=== PATIENT | male | born 1950 | race Caucasian/White ===

== ENCOUNTER 2016-11-30 22:28 | Emergency (ER) | payer OTHER ==
--- NOTE | 2016-11-30 22:33 | EDM.PDOC ---
ED HPI GENERAL MEDICAL PROBLEM - General Stated Complaint: CHEST FEELS HEAVY Time Seen by Provider: 11/30/16 22:32 Source of Information: Reports: Patient, Family History Limitations: Reports: No Limitations - History of Present Illness INITIAL COMMENTS - FREE TEXT/NARRATIVE: spouse states Pt was c/o chest discomfort this am thought was pulled muscle, but not going away, comes-goes, tonight hurts more when lay flat. Pt states had chest heaviness earlier today that went away then left should started aching and worse tonight tried to lay down but pain got worse with SOB. Left Upper Chest Pain Score (Numeric/FACES): 4 - Related Data Allergies Allergy/AdvReac Type Severity Reaction Status Date / Time acetaminophen [From Percocet] Allergy Hives Verified 10/21/15 05:34 oxycodone HCl [From Percocet] Allergy Hives Verified 10/21/15 05:34 vancomycin Allergy Other Verified 10/21/15 05:34 Home Meds: Home Meds Carvedilol [Carvedilol] 12.5 mg PO ACBRK 06/11/14 [History] Losartan/Hydrochlorothiazide [Losartan-HCTZ 50-12.5 MG] 1 each PO DAILY [History] Tamsulosin HCl [Tamsulosin HCl] 0.4 mg PO ASDIRECTED 06/11/14 [History] Warfarin [Coumadin] 5 mg PO ASDIRECTED 06/11/14 [History] glipiZIDE [Glipizide Xl] 10 mg PO BID 06/11/14 [History] metFORMIN [Glucophage] 1,000 mg PO BIDMEALS 06/11/14 [History] Finasteride [Proscar] 5 mg PO DAILY 10/20/15 [History] Fluticasone Propionate [Flonase] 2 puff NASBOTH DAILY 10/20/15 [History] Gluc Fields/Chondro Fields A/Vit C/Mn [Glucosamine 1,500 Complex Cp] 1 tab PO BID [History] Ibuprofen 600 mg PO DAILY 10/20/15 [History] Vardenafil HCl [Levitra] 20 mg PO ASDIRECTED PRN 10/20/15 [History] Past Medical History HEENT History: Reports: Hard of Hearing, Impaired Vision Cardiovascular History: Reports: Afib, Angina, CAD, Hypertension, Other (See Below) Other Cardiovascular History: CHRONIC ANTICOAGULATION Respiratory History: Reports: Sleep Apnea Gastrointestinal History: Reports: Colon Polyp, Diverticulosis, Hemorrhoids Genitourinary History: Reports: BPH, Neurogenic Bladder, Urinary Incontinence, Other (See Below) Other Genitourinary History: GROSS HEMATURIA; ED Musculoskeletal History: Reports: Fracture, Other (See Below) Other Musculoskeletal History: SPRAIN ROTATOR CUFF-JOINT INJECTION; R ANKLE STRESS FRACTURE Endocrine/Metabolic History: Reports: Diabetes, Type II, Obesity/BMI 30+, Other (See Below) Other Endocrine/Metabolic History: AXILLARY LYMPHADENOPATHY; LYMPHEDEMA Immunologic History: Reports: None Oncologic (Cancer) History: Reports: None Dermatologic History: Reports: Cellulitis - Past Surgical History Cardiovascular Surgical History: Reports: Other (See Below) Endocrine Surgical History: Reports: Other (See Below) Social & Family History - Tobacco Use Smoking Status *Q: Never Smoker Second Hand Smoke Exposure: No - Recreational Drug Use Recreational Drug Use: No ED ROS GENERAL - Review of Systems Review Of Systems: ROS reveals no pertinent complaints other than HPI. ED EXAM, GENERAL - Physical Exam Exam: See Below Exam Limited By: No Limitations General Appearance: Alert, WD/WN, Mild Distress, Other (discomfort) Course - Vital Signs Last Recorded V/S: Last Vital Signs Temp 36.8 C 11/30/16 22:36 Pulse 106 H 11/30/16 22:36 Resp 12 11/30/16 22:36 BP 139/68 11/30/16 22:36 Pulse Ox 95 11/30/16 22:36 - Orders/Labs/Meds Orders: Active Orders 24 hr Category Date Time Status EKG 12 Lead [EKG Documentation Completion] [RC] STAT Care 11/30/16 22:31 Active Labs: Laboratory Tests 11/30/16 11/30/16 11/30/16 Range/Units 22:40 22:40 22:40 WBC 8.5 (5.0-10.0) 10^3/uL RBC 4.18 L (4.6-6.2) 10^6/uL Hgb 13.1 L (14.0-18.0) g/dL Hct 38.0 L (40.0-54.0) % MCV 90.9 (80-100) fL MCH 31.3 (27.0-34.0) pg MCHC 34.5 (33.0-35.0) g/dL Plt Count 166 (150-450) 10^3/uL Neut % (Auto) 72.8 (42.2-75.2) % Lymph % (Auto) 16.4 L (20.5-50.1) % [place] % (Auto) 9.0 H (2-8) % Eos % (Auto) 1.4 (1.0-3.0) % Baso % (Auto) 0.4 (0.0-1.0) % PT (9.0-12.0) SEC INR (0.9-1.2) D-Dimer, Quantitative < 100 (0-400) ng/mL Sodium 137 (135-145) mmol/L Potassium 4.2 (3.6-5.0) mmol/L Chloride 99 L (101-111) mmol/L Carbon Dioxide 27.0 (21.0-31.0) mmol/L Anion Gap 15.2 BUN 15 (7-18) mg/dL Creatinine 0.8 (0.6-1.3) mg/dL Est Cr Clr Drug Dosing 105.42 mL/min Estimated GFR (MDRD) > 60 BUN/Creatinine Ratio 18.75 Glucose 244 H (74-105) mg/dL Calcium 8.8 (8.4-10.2) mg/dl Total Bilirubin 1.0 (0.2-1.0) mg/dL AST 18 (10-42) IU/L ALT 20 (10-60) IU/L Alkaline Phosphatase 59 (42-121) IU/L Troponin I < 0.02 (0.00-0.02) ng/ml B-Natriuretic Peptide 82 (0-100) pg/ml Total Protein 6.8 (6.7-8.2) g/dl Albumin 4.0 (3.2-5.5) g/dl Globulin 2.8 Albumin/Globulin Ratio 1.43 06/16/17 Range/Units 22:40 WBC (5.0-10.0) 10^3/uL RBC (4.6-6.2) 10^6/uL Hgb (14.0-18.0) g/dL Hct (40.0-54.0) % MCV (80-100) fL MCH (27.0-34.0) pg MCHC (33.0-35.0) g/dL Plt Count (150-450) 10^3/uL Neut % (Auto) (42.2-75.2) % Lymph % (Auto) (20.5-50.1) % [place] % (Auto) (2-8) % Eos % (Auto) (1.0-3.0) % Baso % (Auto) (0.0-1.0) % PT 16.5 H (9.0-12.0) SEC INR 1.6 H (0.9-1.2) D-Dimer, Quantitative (0-400) ng/mL Sodium (135-145) mmol/L Potassium (3.6-5.0) mmol/L Chloride (101-111) mmol/L Carbon Dioxide (21.0-31.0) mmol/L Anion Gap BUN (7-18) mg/dL Creatinine (0.6-1.3) mg/dL Est Cr Clr Drug Dosing mL/min Estimated GFR (MDRD) BUN/Creatinine Ratio Glucose (74-105) mg/dL Calcium (8.4-10.2) mg/dl Total Bilirubin (0.2-1.0) mg/dL AST (10-42) IU/L ALT (10-60) IU/L Alkaline Phosphatase (42-121) IU/L Troponin I (0.00-0.02) ng/ml B-Natriuretic Peptide (0-100) pg/ml Total Protein (6.7-8.2) g/dl Albumin (3.2-5.5) g/dl Globulin Albumin/Globulin Ratio Meds: Medications Discontinued Medications Generic Name Dose Route Start Last Admin Trade Name Elkinq PRN Reason Stop Dose Admin Al Hydroxide/Mg Hydroxide 30 ml 11/30/16 22:34 11/30/16 22:49 Gi Cocktail PO 11/30/16 22:35 30 ml ONETIME ONE Administration Hydromorphone HCl 1 mg 11/30/16 23:23 11/30/16 23:34 Dilaudid IVPUSH 11/30/16 23:24 1 mg ONETIME ONE Administration Iopamidol 100 ml 11/30/16 23:25 11/30/16 23:33 Isovue-370 (76%) IVPUSH 11/30/16 23:26 100 ml ONETIME ONE Administration Morphine Sulfate 2 mg 11/30/16 22:38 11/30/16 22:50 Morphine IVPUSH 11/30/16 22:39 2 mg ONETIME ONE Administration Ondansetron HCl 4 mg 11/30/16 22:38 11/30/16 22:50 Zofran IV 11/30/16 22:39 4 mg ONETIME ONE Administration - Re-Assessments/Exams Free Text/Narrative Re-Assessment/Exam: 12/01/16 00:59 s/p IV Rx=better. negative results discussed with Pt & spouse Departure - Departure Time of Disposition: 00:59 Disposition: Home, Self-Care 01 Condition: Good Clinical Impression: Atypical chest pain, Esophagitis, Atrial arrhythmia, Anticoagulant therapy Instructions: Nonspecific Chest Pain, [id number] Forms: ED Department Discharge Additional Instructions: 1) rest and avoid lifting bending straining 2) try heat to sore area 3) see family doctor Saturday for MRI SCAN of left shoulder & cervical spine 4) return if there is any change or concern rx given; tramadol 50mg bid prn pain x 12 valium 5mg bid prn spasms x 12 - My Orders Last 24 Hours: My Active Orders 11/30/16 22:31 EKG 12 Lead [EKG Documentation Completion] [RC] STAT - Assessment/Plan Last 24 Hours: My Active Orders 11/30/16 22:31 EKG 12 Lead [EKG Documentation Completion] [RC] STAT
[2016-11-30] MEDS ORDERED: GI Cocktail Oral Solution 30 ML PO ONE (22:34)
[2016-11-30 22:37] VITALS: BP 139/68
[2016-11-30] MEDS ORDERED: Morphine 2 MG/ML Syringe IVPUSH ONE (22:38)
[2016-11-30] MEDS ORDERED: Ondansetron 4 MG/2 ML SDV IV ONE (22:38)
[2016-11-30 23:07] LABS: CHLORIDE,CL 99 mmol/L (101-111); SODIUM,NA 137 mmol/L (135-145)
[2016-11-30] MEDS ORDERED: HYDROmorphone 1 MG/ML Syringe IVPUSH ONE (23:23)
[2016-11-30] MEDS ORDERED: Iopamidol 755 Mg/ML 100 ML Bottle IVPUSH ONE (23:25)
[2016-12-01] MEDS ORDERED: traMADol 50 MG Tab ONE (00:59)
[2016-12-01] MEDS ORDERED: Diazepam 5 MG Tab PO ONE (01:00)
[2016-12-01] MEDS ORDERED: Diazepam 5 MG Tab ONE (01:00)
[2016-12-01] MEDS ORDERED: traMADol 50 MG Tab PO ONE (01:00)
--- NOTE | 2016-12-21 12:45 | EKG ---
11/30/2016 - CYNDY GRANT - A 12-lead EKG shows atrial fibrillation with heart rate of 99. No significant ST elevation or ST depression noted on this 12-lead EKG. [facility] /[id number]
== END 2016-12-01 01:05 | disposition home or self-care (01) ==
LOC: DL.ED 22:28
DX: R07.89 Other chest pain (principal); K20.9 Esophagitis, unspecified; I48.91 Unspecified atrial fibrillation; I25.10 Atherosclerotic heart disease of native coronary artery without angina pectoris; I10 Essential (primary) hypertension; E11.9 Type 2 diabetes mellitus without complications; E66.9 Obesity, unspecified; Z79.01 Long term (current) use of anticoagulants; Z88.1 Allergy status to other antibiotic agents; Z79.899 Other long term (current) drug therapy; Z88.6 Allergy status to analgesic agent
CPT/HCPCS: 36415; 71010; 71260; 80053; 83880; 84484; 85025; 85379; 85610; 93005; 96374; 96375; 99285; A9270; J1170; J2270; J2405; Q9967

== ENCOUNTER 2017-01-15 05:51 | Day surgery (SDC) | payer OTHER ==
[2017-01-15] MEDS ORDERED: Midazolam 1 MG/ML 2 ML SDV ONE (06:12)
[2017-01-15] MEDS ORDERED: fentaNYL 100 MCG/2 ML SDV ONE (06:12)
[2017-01-15] MEDS ORDERED: Sodium Chloride 0.9% 10 ML Syringe FLUSH PRN (07:18)
[2017-01-15] MEDS ORDERED: fentaNYL 100 MCG/2 ML SDV IV ONE ×3 (07:20→16:47)
[2017-01-15] MEDS ORDERED: Midazolam 1 MG/ML 2 ML SDV IV ONE ×3 (07:22→16:47)
[2017-01-15] MEDS ORDERED: Dextrose 5%-0.45% NaCl 1,000 ML IV SCH (07:30)
--- NOTE | 2017-01-15 08:41 | OR ---
DATE: 01/15/2017 PROCEDURES: Esophagogastroduodenoscopy, NBI, and multiple pinch biopsies. INSTRUMENT USED: GIF-H180 Olympus video panendoscope. PREMEDICATIONS: No oral topical anesthesia used. Fentanyl 100 mcg intravenous, Versed 2 mg intravenous. Nasal O2 cannula. The procedure was done under pulse oximetry, BP recording, and air sampling and monitoring. INDICATION: The patient with unexplained chest pain and intermittent high dysphagia, not responsive to medical measures. Esophagogastroduodenoscopy is performed for detection of any active erosive lesions, Lott esophagus and/or malignancy also under consideration, H. pylori status to be determined, esophageal dilatations if indicated, endoscopic hemostasis therapy if needed. DESCRIPTION OF PROCEDURE: The scope was passed with ease. Adequate visualization of the esophagus was made from proximal to distal areas. No upper esophageal lesions identified. No distal esophageal stricture. No uphill or downhill esophageal varices. No Debby-Richards tear. No evidence of erosive esophagitis by Harlan criteria. No esophageal polyp or tumor mass identified. Proximally encroaching, pink columnar epithelium was noted at around 35 cm distal to the oral verge, NBI views were obtained, 4-quadrant biopsies were obtained and sent for any evidence of intestinal metaplasia. No esophageal polyp or tumor mass identified. No proximal gastric varices noted. Gastric fundus examination by retroflexion showed no polypoid lesions. No gastric ulcer, malignant mass, or vascular ectasia identified. Duodenal bulb showed no ulcer. Visualized second part of the duodenum was unremarkable. Multiple pinch biopsies were taken from the gastric antrum and proximal body and sent for PyloriTek test for H. pylori and histopathology. No bleeding was noted from any of the visualized areas at the completion of examination. Photographs were taken of the duodenal bulb, gastric antrum, fundus, and distal esophagus. IMPRESSION: Columnar-lined distal esophagus. The patient tolerated the procedure well. [facility] /[id number]
[2017-01-15 09:21] VITALS: BP 139/80
== END 2017-01-15 09:30 | disposition home or self-care (01) ==
LOC: DL.ENDO 05:51
PROVIDERS: ATTEND Internal Medicine Gastroenterology
DX: K22.70 Barrett's esophagus without dysplasia (principal); E66.01 Morbid (severe) obesity due to excess calories; I10 Essential (primary) hypertension; E11.9 Type 2 diabetes mellitus without complications; K21.9 Gastro-esophageal reflux disease without esophagitis; Z88.1 Allergy status to other antibiotic agents; Z88.8 Allergy status to other drugs, medicaments and biological substances
CPT/HCPCS: 43239; 87077; J2250; J7042; J3010

== ENCOUNTER 2019-09-02 11:17 | Emergency (ER) | payer OTHER ==
--- NOTE | 2019-09-02 11:35 | EDM.PDOC ---
ED HPI GENERAL MEDICAL PROBLEM - General Chief Complaint: Trauma Stated Complaint: UNKNOWN Time Seen by Provider: 09/02/19 11:17 Source of Information: Reports: Patient History Limitations: Reports: No Limitations - History of Present Illness INITIAL COMMENTS - FREE TEXT/NARRATIVE: ED ambulatory, reports slipped on ice and fell hit head on concrete. Admits loss of consciousness. Able to get up drive self home then brought by family. Notes neck pain and skin pain in neck sandy in front. No weakness. Chronic shoulder discomfort. "just not feeling right". On coumadin for A fib last check approximately 3 months ago. C collar placed on arrival. - Related Data Allergies Allergy/AdvReac Type Severity Reaction Status Date / Time acetaminophen [From Percocet] Allergy Hives Verified 09/02/19 11:26 oxycodone HCl [From Percocet] Allergy Hives Verified 09/02/19 11:26 vancomycin Allergy Other Verified 09/02/19 11:26 Home Meds: Home Meds Losartan/Hydrochlorothiazide [Losartan-HCTZ 50-12.5 MG] 1 each PO DAILY [History] Tamsulosin HCl 0.4 mg PO BID 06/11/14 [History] Warfarin [Coumadin] 5 mg PO ASDIRECTED 06/11/14 [History] carvediloL [Carvedilol] 12.5 mg PO ACBRK 06/11/14 [History] metFORMIN [Glucophage] 1,000 mg PO BIDMEALS 06/11/14 [History] Finasteride [Proscar] 5 mg PO DAILY 10/20/15 [History] Fluticasone Propionate [Flonase] 2 puff NASBOTH DAILY 10/20/15 [History] Gluc Fields/Chondro Fields A/Vit C/Mn [Glucosamine 1,500 Complex Cp] 1 tab PO BID [History] Vardenafil HCl [Levitra] 20 mg PO DAILY PRN 10/20/15 [History] Glucosamine [Glucosamine Sulfate] 500 mg PO DAILY 03/30/18 [History] Past Medical History HEENT History: Reports: Hard of Hearing, Impaired Vision Cardiovascular History: Reports: Afib, Angina, CAD, Hypertension, Other (See Below) Other Cardiovascular History: CHRONIC ANTICOAGULATION Respiratory History: Reports: Sleep Apnea Other Respiratory History: Has c-pap Gastrointestinal History: Reports: Colon Polyp, Diverticulosis, Hemorrhoids Genitourinary History: Reports: BPH, Neurogenic Bladder, Urinary Incontinence, Other (See Below) Other Genitourinary History: GROSS HEMATURIA; ED Musculoskeletal History: Reports: Fracture, Other (See Below) Other Musculoskeletal History: SPRAIN ROTATOR CUFF-JOINT INJECTION; R ANKLE STRESS FRACTURE Endocrine/Metabolic History: Reports: Diabetes, Type II, Obesity/BMI 30+, Other (See Below) Other Endocrine/Metabolic History: AXILLARY LYMPHADENOPATHY; LYMPHEDEMA Immunologic History: Reports: None Oncologic (Cancer) History: Reports: None Dermatologic History: Reports: Cellulitis - Infectious Disease History Infectious Disease History: Reports: Chicken Pox, Measles, Mumps Other Infectious Disease History: [place]. - Past Surgical History Cardiovascular Surgical History: Reports: Other (See Below) Other Cardiovascular Surgeries/Procedures: CARDIAC CATH GI Surgical History: Reports: Colonoscopy, Polypectomy Endocrine Surgical History: Reports: Other (See Below) Other Endocrine Surgeries/Procedures: DISSECTION OF AXILLARY DISSECTION WITH REMOVAL OF DEEP LEVEL I & II LYMPH NODES Social & Family History - Family History Family Medical History: Noncontributory - Caffeine Use Caffeine Use: Reports: Coffee, Soda Other Caffeine Use: 1/2 TO 3/4 cup of coffee in the am. Drinks one pop a week Review of Systems - Review of Systems Review Of Systems: Comprehensive ROS is negative, except as noted in HPI. ED EXAM, GENERAL - Physical Exam Exam: See Below Exam Limited By: No Limitations General Appearance: Alert, No Apparent Distress, Obese Eye Exam: Bilateral Eye: EOMI, PERRL Ears: Normal External Exam, Normal Canal, Hearing Loss, Other (bilateral hearing aides) Nose: Normal Inspection Throat/Mouth: Normal Inspection Head: Normocephalic, Other (scalp tender occipital) Neck: Full Range of Motion, Other (c/o pain, lateral and para spinal c collar placed on arrivalj ) Respiratory/Chest: No Respiratory Distress, Lungs Clear, Normal Breath Sounds Cardiovascular: Normal Peripheral Pulses, Irregularly Irregular GI/Abdominal: Normal Bowel Sounds, Soft, Non-Tender Back Exam: Full Range of Motion, Paraspinal Tenderness (upper across shoulder blades) Extremities: Normal Inspection, Normal Range of Motion Neurological: Alert, Oriented, Normal Cognition, Other (GSC 15) Psychiatric: Normal Affect, Normal Mood Skin Exam: Warm, Dry, Intact, Normal Color, No Rash. No: Ecchymosis, Erythema, Wound/Incision Course - Orders/Labs/Meds Orders: Active Orders 24 hr Category Date Time Status Abdomen w Cont [CT] Urgent Exams 09/02/19 12:14 Taken Labs: Laboratory Tests 09/02/19 09/02/19 09/02/19 Range/Units 11:37 11:37 11:37 WBC 5.9 (5.0-10.0) 10^3/uL RBC 4.71 (4.6-6.2) 10^6/uL Hgb 14.8 D (14.0-18.0) g/dL Hct 43.1 (40.0-54.0) % MCV 91.5 (80-100) fL MCH 31.4 (27.0-34.0) pg MCHC 34.3 (33.0-35.0) g/dL Plt Count 157 (150-450) 10^3/uL Neut % (Auto) 72.1 (42.2-75.2) % Lymph % (Auto) 17.8 L (20.5-50.1) % [place] % (Auto) 8.6 H (2-8) % Eos % (Auto) 1.0 (1.0-3.0) % Baso % (Auto) 0.5 (0.0-1.0) % PT 37.0 H D (9.0-12.0) SEC INR 3.9 H (0.9-1.2) Sodium 138 (136-145) mmol/L Potassium 4.4 (3.5-5.1) mmol/L Chloride 101 (98-107) mmol/L Carbon Dioxide 33 H (21-32) mmol/L Anion Gap 8.4 (7-13) mEq/L BUN 26 H (7-18) mg/dL Creatinine 0.95 (0.70-1.30) mg/dL Est Cr Clr Drug Dosing TNP Estimated GFR (MDRD) > 60 BUN/Creatinine Ratio 27.4 (No establ ref range) Glucose 156 H (74-99) mg/dL Calcium 8.3 L (8.5-10.1) mg/dL Total Bilirubin 1.1 H (0.2-1.0) mg/dL AST 11 L (15-37) U/L ALT 23 (16-63) U/L Alkaline Phosphatase 67 (46-116) U/L Total Protein 7.3 (6.4-8.2) g/dL Albumin 3.9 (3.4-5.0) g/dL Globulin 3.4 Albumin/Globulin Ratio 1.1 Meds: Medications Discontinued Medications Generic Name Dose Route Start Last Admin Trade Name Adan PRN Reason Stop Dose Admin Iopamidol 100 ml 09/02/19 12:09 Isovue-300 (61%) IVPUSH 09/02/19 12:10 ONETIME ONE Iopamidol 100 ml 09/02/19 12:15 09/02/19 12:52 Isovue-370 (76%) IVPUSH 09/02/19 12:16 100 ml ONETIME ONE Administration - Re-Assessments/Exams Free Text/Narrative Re-Assessment/Exam: 1220 C-spine resulted continued pain around collar. Further testing thoracic with contrast. 09/02/19 13:36 Alert, primary c/o pain to base of neck feels like on fire. No weakness or tingling. c/o pain now across shoulder blades, denies hitting head , at least doesn't' think so. Now reporting hitting between shoulder blades on curb. Some repetitive questions, Moving extremities. Scans with no acute findings. primary c/o burning at collar. moving all extremities. Mentation clearing. GSC 15. RN, results reviewed. Home will continue to monitor and follow up if any change. Departure - Departure Time of Disposition: 13:46 Disposition: Home, Self-Care 01 Condition: Good Clinical Impression: Concussion with brief (less than one hour) loss of consciousness, Muscle strain of anterior chest wall, Chronic anticoagulation Strain of neck muscle Qualifiers: Encounter type: initial encounter Qualified Code(s): S16.1XXA - Strain of muscle, fascia and tendon at neck level, initial encounter Fall Qualifiers: Encounter type: initial encounter Qualified Code(s): W19.XXXA - Unspecified fall, initial encounter Afib Qualifiers: Atrial fibrillation type: unspecified Qualified Code(s): I48.91 - Unspecified atrial fibrillation - Discharge Information *PRESCRIPTION DRUG MONITORING PROGRAM REVIEWED*: No *COPY OF PRESCRIPTION DRUG MONITORING REPORT IN PATIENT SADE: No Instructions: Head Injury, Adult, Muscle Strain, [id number], Post-Concussion Syndrome Referrals: Trish Mayberry NP [Primary Care Provider] - Forms: ED Department Discharge Additional Instructions: flexeril 10mg one ever 8 hours as needed for severe spasm hydrocodone 10/325 one every 6 hours as needed for severe pain tylenol 650mg every 4 hours as needed for discomfort hold coumadin tonight then 1/2 dose , recheck INR Saturday Discuss Coumadin dosing with primary care ice to upper chest Urgent follow up dizziness, severe headache, change in mental state, confusion, or difficulty breathing Sepsis Event Note - Focused Exam Date Exam was Performed: 09/02/19 Time Exam was Performed: 15:46 - My Orders Last 24 Hours: My Active Orders 09/02/19 12:14 Abdomen w Cont [CT] Urgent - Assessment/Plan Last 24 Hours: My Active Orders 09/02/19 12:14 Abdomen w Cont [CT] Urgent
[2019-09-02 12:00] LABS: ANION GAP 8.4 mEq/L (7-13); CHLORIDE,CL 101 mmol/L (98-107); SODIUM,NA 138 mmol/L (136-145)
[2019-09-02] MEDS ORDERED: Iopamidol 612 MG/ML 100 ML Bottle IVPUSH ONE (12:09)
[2019-09-02] MEDS ORDERED: Iopamidol 755 Mg/ML 100 ML Bottle IVPUSH ONE (12:15)
--- NOTE | 2019-09-02 12:25 | CT ---
EXAMINATION: Cervical Spine wo Cont SEX: Male AGE: 69 years CLINICAL HISTORY: Clinical history: 69-year-old male injured in fall (on coumadin) Scan technique: Volume acquisition of data emergency unenhanced CT scan of the cervical spine obtained with patient lying supine on the Siemens multislice scanner [place], [place]. All data archived in the PACS system for storage, reformatting axial/sagittal/coronal planes and study. INTERPRETATION: 1. Chronic dense reactive sclerosis atlantoaxial joint. 2. Signs of multilevel mid and lower cervical disc disease i.e. interspace narrowing, endplate sclerosis and hypertrophic marginal spondylosis bridging C4-5 C5-6 and C6-7 levels. Note: Large uncinate spurs posteriorly lower cervical spine exam to exclude the possibility of cervical cord contusion. Clinical? 3. Calcification of the ligamentum flavum posteriorly at cervical spine. 4. No sign of prevertebral soft tissue swelling, acute cervical fracture, spondylolisthesis or jumped locked facet. 5. No cervical rib anomalies or first rib fractures. Lung apices clear. 6. No basal skull fracture (symmetric clear pneumatization of the mastoid sinuses) CONCLUSION: Chronic severe multilevel disc disease (see above). No acute cervical fracture or dislocation.
--- NOTE | 2019-09-02 12:29 | CT ---
EXAMINATION: Head wo Cont SEX: Male AGE: 69 years CLINICAL HISTORY: 69-year-old male injured today in a fall (high risk patient i.e. on Coumadin). Scan technique: Volume acquisition of data emergency unenhanced CT scan of the head and brain obtained with patient lying supine on the Siemens multislice scanner [place], [place]. All data archived in the PACS system for storage, reformatting axial/sagittal/coronal planes and study (bone/brain windows). Interpretation: 1. Uniformly thick bony calvarium without sign of skull fracture, underlying/contrecoup brain contusion, or abnormal extracerebral/intracranial epidural or subdural hematoma. 2. Symmetric clear pneumatization of the paranasal and mastoid sinuses. Nasal septum is straight midline. Normal TMJs. 3. Symmetric mendiola-white matter pattern consistent with age and underlying mirror-image normal ventricular system. 4. Midline pineal and symmetric choroid plexus calcifications. Coronary artery calcifications skull base. 5. No supratentorial or posterior fossa mass lesion. Cerebellum and brainstem unremarkable. 6. Subtle microvascular ischemic change but no sign of acute intracerebral/intraventricular/subarachnoid bleed. CONCLUSION: Microvascular ischemic changes. No sign of skull fracture or closed head injury. Specifically, no current evidence of acute intracranial bleed.
--- NOTE | 2019-09-02 12:56 | CR ---
EXAMINATION: Shoulder 1V Lt SEX: Male AGE: 69 years CLINICAL HISTORY: 69-year-old male recently injured (fall on back) and now LEFT SHOULDER PAIN. INTERPRETATION: Abnormal. 1. *Elevation of the humeral head relative to the glenoid of the scapula suggesting rotator cuff impingement or tear. 2. No sign of juxta-articular rotator cuff tendon calcifications. 3. Homogeneous normal bone density. No pathologic skeletal lesion. 4. No sign of acute left shoulder fracture, acromioclavicular separation or glenohumeral dislocation. 5. Underlying ribs upper left hemithorax unremarkable. Left lung apex clear.
--- NOTE | 2019-09-02 13:34 | CT ---
EXAMINATION: Chest w Cont SEX: Male AGE: 69 years CLINICAL HISTORY: 69-year-old 327 pound diabetic male injured in FALL ("tingling" between the shoulder blades"). Rule out aortic dissection (Coumadin anticoagulation) or spinal abnormality. Scan technique: Volume acquisition of data from the chest and abdomen obtained during the intravenous administration 100 cc nonionic Isovue 370 contrast at 4 cc/s via injector while patient was lying supine on the Siemens multislice scanner [place], [place]. All data archived in the PACS system for storage, reformatting axial/sagittal/coronal planes and study. INTERPRETATION: 1. Normal caliber mildly ectatic thoracic and abdominal aorta. No sign of dissection or aneurysmal dilatation. 2. Kyphosis, multilevel disc disease and hypertrophic spondylosis all levels lower cervical, entire thoracic and lumbar spine. No pathologic skeletal lesion, acute fracture or spondylolisthesis. No rib fractures. Sternum and scapulae unremarkable. 3. Borderline cardiomegaly. No pulmonary vascular congestion, alveolar edema or dependent pleural effusion. 4. Bibasilar atelectasis. No lung mass, hilar/mediastinal lymphadenopathy, or focal lobar pneumonia. No pneumothorax. 5. Gallbladder, liver, stomach, spleen, pancreas and adrenal glands unremarkable. 6. Isolated small 2.5 cm diameter fatty mass lesion (probable angiomyolipoma) upper pole right kidney. Isolated 15 mm exophytic cyst posterior lateral cortex lower midpole right kidney. No other solid or cystic renal lesion. No nephrolithiasis. 7. No sign of mechanical bowel obstruction, free intraperitoneal fluid or air. CONCLUSION: No abnormal sequelae of trauma. Usual signs of senescent including multilevel disc disease and arthritis. 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
--- NOTE | 2019-09-02 13:40 | CT ---
EXAMINATION: Thoracic Spine wo Cont SEX: Male AGE: 69 years CLINICAL HISTORY: 69-year-old obese male acutely injured in a fall (upper mid back pain). Scan technique: Volume acquisition of data emergency unenhanced CT scan of the thoracic spine obtained with patient lying supine on the Siemens multislice scanner [place], [place]. All data archived in the PACS system for storage, reformatting axial/sagittal/coronal planes and study. Interpretation: Generalized mild osteopenia consistent with age and gender. Kyphosis upper dorsal spine but no sign of paraspinal soft tissue mass/hematoma, acute thoracic fracture or spondylolisthesis. Chronic multilevel disc disease noted at all levels of the thoracic spine with associated hypertrophic marginal spondylosis thoracic and upper lumbar spine. Left normal caliber underlying unenhanced thoracic aorta. No effusions. No posterior rib fractures. No upper lobe contusion (patchy atelectasis or contusion LLL) or pneumothorax. Arthritic changes but normal sternoclavicular joint articulation. CONCLUSION: Chronic multilevel disc disease and hypertrophic arthritic changes of the entire spine. No acute fracture.
== END 2019-09-02 14:05 | disposition home or self-care (01) ==
LOC: DL.ED 11:17
DX: S06.0X9A Concussion with loss of consciousness of unspecified duration, initial encounter (principal); S16.1XXA Strain of muscle, fascia and tendon at neck level, initial encounter; S29.011A Strain of muscle and tendon of front wall of thorax, initial encounter; I48.91 Unspecified atrial fibrillation; I10 Essential (primary) hypertension; I25.10 Atherosclerotic heart disease of native coronary artery without angina pectoris; E11.9 Type 2 diabetes mellitus without complications; E66.9 Obesity, unspecified; Z88.8 Allergy status to other drugs, medicaments and biological substances; Z88.5 Allergy status to narcotic agent; Z88.1 Allergy status to other antibiotic agents; Z79.899 Other long term (current) drug therapy; Z79.01 Long term (current) use of anticoagulants; Z79.84 Long term (current) use of oral hypoglycemic drugs; W00.0XXA Fall on same level due to ice and snow, initial encounter
CPT/HCPCS: 36415; 70450; 71260; 72125; 72128; 73020-LT; 74160; 80053; 85025; 85610; 99284-25; Q9967

== ENCOUNTER 2020-05-02 14:28 | Emergency (ER) | payer OTHER ==
[2020-05-02 14:41] VITALS: BP 118/85; PULSE 84
--- NOTE | 2020-05-02 15:02 | CR ---
EXAMINATION: Chest 1V Frontal SEX: Male AGE: 69 years CLINICAL HISTORY: 69-year-old male complaining of chest pain. INTERPRETATION: *No acute new cardiopulmonary abnormality identified since comparison exam 30 March 2018. Chronic mild cardiomegaly but no new pulmonary vascular congestion, cephalization of flow, alveolar edema or dependent pleural fluid accumulation. No new lung mass or hilar lymphadenopathy. No focal lobar infiltrate/atelectasis or peripheral "groundglass" densities. No pneumothorax or pneumomediastinum (external cardiac catheterization technician leads). 1. CONCLUSION:
[2020-05-02 15:14] LABS: ANION GAP 12.9 mEq/L (7-13); CHLORIDE,CL 99 mmol/L (98-107); SODIUM,NA 137 mmol/L (136-145)
[2020-05-02] MEDS ORDERED: GI Cocktail Oral Solution 30 ML PO ONE (15:31)
--- NOTE | 2020-05-02 15:37 | EDM.PDOC ---
ED HPI GENERAL MEDICAL PROBLEM - General Chief Complaint: Chest Pain Stated Complaint: UNKNOWN Time Seen by Provider: 05/02/20 14:45 Source of Information: Reports: Patient History Limitations: Reports: No Limitations - History of Present Illness INITIAL COMMENTS - FREE TEXT/NARRATIVE: This 69 yo male patient reports to the ED with left arm pain. The patient reports his symptoms started last evening and have continued throughout the day. The patient reports his pain is in his entire left arm from his shoulder to his hand. The patient has not been able to do anything to make the pain better or worse. The patient reports he had excessive gas last night as well. The patient reports he had a MRI of his neck last week due to right sided aching. The MRI results demonstrated nerve impingement at C-4 as well as foramen narrowing throughout the c-spine. Onset Date: 05/01/20 Duration: Constant Location: Reports: Upper Extremity, Left Quality: Reports: Ache Severity: Moderate Improves with: Reports: None Worsens with: Reports: None Context: Reports: Other Associated Symptoms: Reports: No Other Symptoms Left Arm Pain Score (Numeric/FACES): 2 - Related Data Allergies Allergy/AdvReac Type Severity Reaction Status Date / Time acetaminophen [From Percocet] Allergy Hives Verified 05/02/20 14:41 oxycodone HCl [From Percocet] Allergy Hives Verified 05/02/20 14:41 vancomycin Allergy Other Verified 05/02/20 14:41 Home Meds: Home Meds Losartan/Hydrochlorothiazide [Losartan-HCTZ 50-12.5 MG] 1 each PO DAILY 06/11/14 [History] Tamsulosin HCl 0.4 mg PO BID 06/11/14 [History] Warfarin [Coumadin] 5 mg PO ASDIRECTED 06/11/14 [History] carvediloL [Carvedilol] 12.5 mg PO ACBRK 06/11/14 [History] metFORMIN [Glucophage] 1,000 mg PO BIDMEALS 06/11/14 [History] Finasteride [Proscar] 5 mg PO DAILY 10/20/15 [History] Fluticasone Propionate [Flonase] 2 puff NASBOTH DAILY 10/20/15 [History] Gluc Fields/Chondro Fields A/Vit C/Mn [Glucosamine 1,500 Complex Cp] 1 tab PO BID 10/20/15 [History] Vardenafil HCl [Levitra] 20 mg PO DAILY PRN 10/20/15 [History] Glucosamine [Glucosamine Sulfate] 500 mg PO DAILY 03/30/18 [History] Past Medical History HEENT History: Reports: Hard of Hearing, Impaired Vision Cardiovascular History: Reports: Afib, Angina, CAD, Hypertension, Other (See Below) Other Cardiovascular History: CHRONIC ANTICOAGULATION Respiratory History: Reports: Sleep Apnea Other Respiratory History: Has c-pap Gastrointestinal History: Reports: Colon Polyp, Diverticulosis, Hemorrhoids Genitourinary History: Reports: BPH, Neurogenic Bladder, Urinary Incontinence, Other (See Below) Other Genitourinary History: GROSS HEMATURIA; ED Musculoskeletal History: Reports: Fracture, Other (See Below) Other Musculoskeletal History: SPRAIN ROTATOR CUFF-JOINT INJECTION; R ANKLE STRESS FRACTURE Endocrine/Metabolic History: Reports: Diabetes, Type II, Obesity/BMI 30+, Other (See Below) Other Endocrine/Metabolic History: AXILLARY LYMPHADENOPATHY; LYMPHEDEMA Immunologic History: Reports: None Oncologic (Cancer) History: Reports: None Dermatologic History: Reports: Cellulitis - Infectious Disease History Infectious Disease History: Reports: Chicken Pox, Measles, Mumps Other Infectious Disease History: [place]. - Past Surgical History HEENT Surgical History: Reports: None Cardiovascular Surgical History: Reports: Other (See Below) Other Cardiovascular Surgeries/Procedures: CARDIAC CATH GI Surgical History: Reports: Colonoscopy, Polypectomy Endocrine Surgical History: Reports: Other (See Below) Other Endocrine Surgeries/Procedures: DISSECTION OF AXILLARY DISSECTION WITH REMOVAL OF DEEP LEVEL I & II LYMPH NODES Social & Family History - Family History Family Medical History: No Pertinent Family History - Tobacco Use Tobacco Use Status *Q: Never Tobacco User - Caffeine Use Caffeine Use: Reports: Coffee Other Caffeine Use: 1/2 TO 3/4 cup of coffee in the am. Drinks one pop a week - Recreational Drug Use Recreational Drug Use: No ED ROS GENERAL - Review of Systems Review Of Systems: Comprehensive ROS is negative, except as noted in HPI. ED EXAM, GENERAL - Physical Exam Exam: See Below Exam Limited By: No Limitations General Appearance: Alert, WD/WN, Mild Distress Eye Exam: Bilateral Eye: EOMI, Normal Inspection, PERRL Ears: Normal External Exam, Normal Canal, Hearing Grossly Normal, Normal TMs Nose: Normal Inspection, Normal Mucosa, No Blood Throat/Mouth: Normal Inspection, Normal Lips, Normal Teeth, Normal Gums, Normal Oropharynx, Normal Voice, No Airway Compromise Head: Atraumatic, Normocephalic Neck: Normal Inspection, Supple, Non-Tender, Full Range of Motion Respiratory/Chest: No Respiratory Distress, Lungs Clear, Normal Breath Sounds, No Accessory Muscle Use, Chest Non-Tender Cardiovascular: Normal Peripheral Pulses, Regular Rate, Rhythm, No Edema, No Gallop, No JVD, No Murmur, No Rub GI/Abdominal: Normal Bowel Sounds, Soft, Non-Tender, No Organomegaly, No Distention, No Abnormal Bruit, No Mass (Male) Exam: Deferred Rectal (Males) Exam: Deferred Back Exam: Normal Inspection Extremities: Normal Range of Motion, No Pedal Edema, Normal Capillary Refill, Arm Pain (left upper extremity aching) Neurological: Alert, Oriented, CN II-XII Intact, Normal Cognition, Normal Gait, Normal Reflexes, No Motor/Sensory Deficits Psychiatric: Normal Affect, Normal Mood Skin Exam: Warm, Dry, Intact, Normal Color, No Rash Lymphatic: No Adenopathy Course - Vital Signs Last Recorded V/S: Last Vital Signs Temp 36.1 C 05/02/20 14:39 Pulse 84 05/02/20 14:39 Resp 20 05/02/20 14:39 BP 118/85 05/02/20 14:39 Pulse Ox 97 05/02/20 14:39 - Orders/Labs/Meds Orders: Active Orders 24 hr Category Date Time Status EKG Documentation Completion [RC] STAT Care 05/02/20 14:27 Ordered CULTURE BLOOD [BC] Stat Lab 05/02/20 14:27 Ordered Labs: Laboratory Tests 05/02/20 05/02/20 05/02/20 Range/Units 14:38 14:38 14:38 WBC 5.8 (5.0-10.0) 10^3/uL RBC 4.51 L (4.6-6.2) 10^6/uL Hgb 14.3 (14.0-18.0) g/dL Hct 41.9 (40.0-54.0) % MCV 92.9 (80-100) fL MCH 31.7 (27.0-34.0) pg MCHC 34.1 (33.0-35.0) g/dL Plt Count 166 (150-450) 10^3/uL Neut % (Auto) 71.0 (42.2-75.2) % Lymph % (Auto) 18.4 L (20.5-50.1) % Rush % (Auto) 8.6 H (2-8) % Eos % (Auto) 1.5 (1.0-3.0) % Baso % (Auto) 0.5 (0.0-1.0) % D-Dimer, Quantitative < 100 (0-400) ng/mL Sodium 137 (136-145) mmol/L Potassium 3.9 (3.5-5.1) mmol/L Chloride 99 (98-107) mmol/L Carbon Dioxide 29 (21-32) mmol/L Anion Gap 12.9 (7-13) mEq/L BUN 23 H (7-18) mg/dL Creatinine 0.93 (0.70-1.30) mg/dL Est Cr Clr Drug Dosing 89.61 mL/min Estimated GFR (MDRD) > 60 BUN/Creatinine Ratio 24.7 (No establ ref range) Glucose 193 H (74-99) mg/dL Lactic Acid (0.4-2.0) mmol/L Calcium 8.8 (8.5-10.1) mg/dL Total Bilirubin 1.3 H (0.2-1.0) mg/dL AST 12 L (15-37) U/L ALT 20 (16-63) U/L Alkaline Phosphatase 73 (46-116) U/L Troponin I < 0.017 (0.000-0.056) ng/mL Total Protein 7.3 (6.4-8.2) g/dL Albumin 3.7 (3.4-5.0) g/dL Globulin 3.6 Albumin/Globulin Ratio 1.0 11/16/20 Range/Units 14:38 WBC (5.0-10.0) 10^3/uL RBC (4.6-6.2) 10^6/uL Hgb (14.0-18.0) g/dL Hct (40.0-54.0) % MCV (80-100) fL MCH (27.0-34.0) pg MCHC (33.0-35.0) g/dL Plt Count (150-450) 10^3/uL Neut % (Auto) (42.2-75.2) % Lymph % (Auto) (20.5-50.1) % Rush % (Auto) (2-8) % Eos % (Auto) (1.0-3.0) % Baso % (Auto) (0.0-1.0) % D-Dimer, Quantitative (0-400) ng/mL Sodium (136-145) mmol/L Potassium (3.5-5.1) mmol/L Chloride (98-107) mmol/L Carbon Dioxide (21-32) mmol/L Anion Gap (7-13) mEq/L BUN (7-18) mg/dL Creatinine (0.70-1.30) mg/dL Est Cr Clr Drug Dosing mL/min Estimated GFR (MDRD) BUN/Creatinine Ratio (No establ ref range) Glucose (74-99) mg/dL Lactic Acid 1.2 (0.4-2.0) mmol/L Calcium (8.5-10.1) mg/dL Total Bilirubin (0.2-1.0) mg/dL AST (15-37) U/L ALT (16-63) U/L Alkaline Phosphatase (46-116) U/L Troponin I (0.000-0.056) ng/mL Total Protein (6.4-8.2) g/dL Albumin (3.4-5.0) g/dL Globulin Albumin/Globulin Ratio Meds: Medications Discontinued Medications Generic Name Dose Route Start Last Admin Trade Name Freq PRN Reason Stop Dose Admin Al Hydroxide/Mg Hydroxide 30 ml 05/02/20 15:31 05/02/20 15:35 Gi Cocktail PO 05/02/20 15:32 30 ml ONETIME ONE Administration Departure - Departure Time of Disposition: 15:47 Disposition: Home, Self-Care 01 Condition: Fair Clinical Impression: Radicular pain in left arm Instructions: Neuropathic Pain Forms: ED Department Discharge Care Plan Goals: The patient was advised of the examination, lab, EKG and x-ray results during the visit. The patient was given a GI Cocktail while in the ED. The patient was discharged with a script for Prednisone (20 mg) #10 to take 2 by mouth daily for 5 days. The patient was encouraged to continue to monitor for any additional symptoms. If the patient has any additional symptoms or concerns, the patient should either return to the emergency department or visit his primary care facility. Sepsis Event Note (ED) - Evaluation Sepsis Screening Result: No Definite Risk - Focused Exam Vital Signs: Vital Signs Temp Pulse Resp BP Pulse Ox 05/02/20 14:39 36.1 C 84 20 118/85 97 - My Orders Last 24 Hours: My Active Orders 05/02/20 14:27 EKG Documentation Completion [RC] STAT CULTURE BLOOD [BC] Stat - Assessment/Plan Last 24 Hours: My Active Orders 05/02/20 14:27 EKG Documentation Completion [RC] STAT CULTURE BLOOD [BC] Stat
== END 2020-05-02 15:55 | disposition home or self-care (01) ==
LOC: DL.ED 14:28
DX: M54.12 Radiculopathy, cervical region (principal); I48.91 Unspecified atrial fibrillation; I25.10 Atherosclerotic heart disease of native coronary artery without angina pectoris; I10 Essential (primary) hypertension; N40.0 Benign prostatic hyperplasia without lower urinary tract symptoms; E11.9 Type 2 diabetes mellitus without complications; E66.9 Obesity, unspecified; Z68.41 Body mass index [BMI] 40.0-44.9, adult; Z88.6 Allergy status to analgesic agent; Z88.5 Allergy status to narcotic agent; Z88.1 Allergy status to other antibiotic agents; Z79.84 Long term (current) use of oral hypoglycemic drugs; Z79.899 Other long term (current) drug therapy
CPT/HCPCS: 36415; 71045; 80053; 83605; 84484; 85025; 85379; 87040; 93005; 99283; 99284; A9270

== ENCOUNTER 2020-06-04 08:09 | Emergency (ER) | payer OTHER ==
[2020-06-04 08:18] VITALS: BP 117/71; PULSE 82
--- NOTE | 2020-06-04 08:59 | EDM.PDOC ---
ED HPI GENERAL MEDICAL PROBLEM - General Stated Complaint: RIGHT KNEE INJURY Time Seen by Provider: 06/04/20 08:45 Source of Information: Reports: Patient History Limitations: Reports: No Limitations - History of Present Illness INITIAL COMMENTS - FREE TEXT/NARRATIVE: This 69 yo male patient reports to the ED with left knee pain. The patient reports he was carrying 2 bags of groceries into the house yesterday up the stairs. The patient reports he was stepping onto a stair with his left leg when he noticed increased pain. The patient reports he has had increased pain with movement or weight bearing activity since the injury. Onset Date: 06/03/20 Duration: Constant Location: Reports: Lower Extremity, Left (knee) Quality: Reports: Ache, Sharp, Stabbing Severity: Moderate Improves with: Reports: None Worsens with: Reports: None Context: Reports: Other Associated Symptoms: Reports: No Other Symptoms Left Knee Pain Score (Numeric/FACES): 10 - Related Data Allergies Allergy/AdvReac Type Severity Reaction Status Date / Time acetaminophen [From Percocet] Allergy Hives Verified 06/04/20 08:14 oxycodone HCl [From Percocet] Allergy Hives Verified 06/04/20 08:14 vancomycin Allergy Other Verified 06/04/20 08:14 Home Meds: Home Meds Losartan/Hydrochlorothiazide [Losartan-HCTZ 50-12.5 MG] 1 each PO DAILY 06/11/14 [History] Tamsulosin HCl 0.4 mg PO BID 06/11/14 [History] Warfarin [Coumadin] 5 mg PO ASDIRECTED 06/11/14 [History] carvediloL [Carvedilol] 12.5 mg PO ACBRK 06/11/14 [History] metFORMIN [Glucophage] 1,000 mg PO BIDMEALS 06/11/14 [History] Finasteride [Proscar] 5 mg PO DAILY 10/20/15 [History] Fluticasone Propionate [Flonase] 2 puff NASBOTH DAILY 10/20/15 [History] Gluc Fields/Chondro Fields A/Vit C/Mn [Glucosamine 1,500 Complex Cp] 1 tab PO BID 10/20/15 [History] Vardenafil HCl [Levitra] 20 mg PO DAILY PRN 10/20/15 [History] Glucosamine [Glucosamine Sulfate] 500 mg PO DAILY 03/30/18 [History] Past Medical History HEENT History: Reports: Hard of Hearing, Impaired Vision Cardiovascular History: Reports: Afib, Angina, CAD, Hypertension, Other (See Below) Other Cardiovascular History: CHRONIC ANTICOAGULATION Respiratory History: Reports: Sleep Apnea Other Respiratory History: Has c-pap Gastrointestinal History: Reports: Colon Polyp, Diverticulosis, Hemorrhoids Genitourinary History: Reports: BPH, Neurogenic Bladder, Urinary Incontinence, Other (See Below) Other Genitourinary History: GROSS HEMATURIA; ED Musculoskeletal History: Reports: Fracture, Other (See Below) Other Musculoskeletal History: SPRAIN ROTATOR CUFF-JOINT INJECTION; R ANKLE STRESS FRACTURE Neurological History: Reports: None Psychiatric History: Reports: None Endocrine/Metabolic History: Reports: Diabetes, Type II, Obesity/BMI 30+, Other (See Below) Other Endocrine/Metabolic History: AXILLARY LYMPHADENOPATHY; LYMPHEDEMA Hematologic History: Reports: None Immunologic History: Reports: None Oncologic (Cancer) History: Reports: None Dermatologic History: Reports: Cellulitis - Infectious Disease History Infectious Disease History: Reports: Chicken Pox, Measles, Mumps Other Infectious Disease History: [place]. - Past Surgical History Head Surgeries/Procedures: Reports: None HEENT Surgical History: Reports: None Cardiovascular Surgical History: Reports: Other (See Below) Other Cardiovascular Surgeries/Procedures: CARDIAC CATH GI Surgical History: Reports: Colonoscopy, Polypectomy Endocrine Surgical History: Reports: Other (See Below) Other Endocrine Surgeries/Procedures: DISSECTION OF AXILLARY DISSECTION WITH REMOVAL OF DEEP LEVEL I & II LYMPH NODES Social & Family History - Family History Family Medical History: No Pertinent Family History - Tobacco Use Tobacco Use Status *Q: Never Tobacco User Second Hand Smoke Exposure: No - Caffeine Use Caffeine Use: Reports: None Other Caffeine Use: 1/2 TO 3/4 cup of coffee in the am. Drinks one pop a week - Recreational Drug Use Recreational Drug Use: No Review of Systems - Review of Systems Review Of Systems: Comprehensive ROS is negative, except as noted in HPI. ED EXAM, GENERAL - Physical Exam Exam: See Below Exam Limited By: No Limitations General Appearance: Alert, WD/WN, Moderate Distress Eye Exam: Bilateral Eye: EOMI, PERRL Ears: Hearing Grossly Normal Nose: Normal Inspection, No Blood Respiratory/Chest: No Respiratory Distress, Lungs Clear, Normal Breath Sounds Cardiovascular: Normal Peripheral Pulses, Regular Rate, Rhythm (Male) Exam: Deferred Rectal (Males) Exam: Deferred Extremities: Leg Pain (left knee pain) Neurological: Alert, Oriented, CN II-XII Intact, Normal Cognition, Normal Gait, Normal Reflexes, No Motor/Sensory Deficits Psychiatric: Normal Affect, Normal Mood Skin Exam: Warm, Dry, Intact, Normal Color, No Rash Lymphatic: No Adenopathy Course - Vital Signs Last Recorded V/S: Last Vital Signs Temp 35.6 C L 06/04/20 08:17 Pulse 82 06/04/20 08:17 Resp 16 06/04/20 08:17 BP 117/71 06/04/20 08:17 Pulse Ox 98 06/04/20 08:17 - Orders/Labs/Meds Orders: Active Orders 24 hr Category Date Time Status Knee 3V Lt [CR] Urgent Exams 06/04/20 08:28 Taken Departure - Departure Time of Disposition: 08:59 Disposition: Home, Self-Care 01 Condition: Fair Clinical Impression: Strain of left knee Qualifiers: Encounter type: initial encounter Qualified Code(s): S86.912A - Strain of unspecified muscle(s) and tendon(s) at lower leg level, left leg, initial encounter - Discharge Information *PRESCRIPTION DRUG MONITORING PROGRAM REVIEWED*: Not Applicable *COPY OF PRESCRIPTION DRUG MONITORING REPORT IN PATIENT SADE: Not Applicable Instructions: Knee Sprain, Adult, Mnio-tq-Vign Forms: ED Department Discharge Care Plan Goals: The patient was advised of the examination and x-ray results during the visit. The patient was placed in a knee immobilizer and given a set of crutches. The patient was encouraged to rest, ice and elevate his left knee. The patient was encouraged to follow-up with his primary care facility for continued evaluation (MRI) and treatment. If the patient has any additional symptoms or concerns, the patient should either return to the emergency department or visit his primary care facility. Sepsis Event Note (ED) - Evaluation Sepsis Screening Result: No Definite Risk - Focused Exam Vital Signs: Vital Signs Temp Pulse Resp BP Pulse Ox 06/04/20 08:17 35.6 C L 82 16 117/71 98 - My Orders Last 24 Hours: My Active Orders 06/04/20 08:28 Knee 3V Lt [CR] Urgent - Assessment/Plan Last 24 Hours: My Active Orders 06/04/20 08:28 Knee 3V Lt [CR] Urgent
--- NOTE | 2020-06-04 09:06 | CR ---
PROCEDURE INFORMATION: Exam: XR Left Knee Exam date and time: 06/04/2020 8:29 AM Age: 69 years old Clinical indication: Injury or trauma; Swelling (edema); Injury date: 06/03/2020; Injury details: Fall, left knee pain TECHNIQUE: Imaging protocol: XR Left knee. Views: 3 views. COMPARISON: No relevant prior studies available. FINDINGS: Bones/joints: Mild diffuse patellofemoral degenerative spurring. Slight medial femorotibial degenerative spurring. Normal bone mineralization and alignment. No fracture, joint effusion or suspicious bone lucency. Soft tissues: Normal. Vasculature: Scattered peripheral arterial calcification. IMPRESSION: 1. 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 2. No acute fracture or suspicious finding. 3. Peripheral arterial disease.
== END 2020-06-04 09:08 | disposition home or self-care (01) ==
LOC: DL.ED 08:09
DX: S86.812A Strain of other muscle(s) and tendon(s) at lower leg level, left leg, initial encounter (principal); E11.9 Type 2 diabetes mellitus without complications; E66.9 Obesity, unspecified; I10 Essential (primary) hypertension; I25.10 Atherosclerotic heart disease of native coronary artery without angina pectoris; I48.91 Unspecified atrial fibrillation; Z88.1 Allergy status to other antibiotic agents; Z88.5 Allergy status to narcotic agent; Z79.84 Long term (current) use of oral hypoglycemic drugs; Z79.899 Other long term (current) drug therapy; X50.9XXA Other and unspecified overexertion or strenuous movements or postures, initial encounter
CPT/HCPCS: 73562-LT; 99282; 99283

== ENCOUNTER 2022-11-26 12:50 | Emergency (ER) | payer MEDICARE ==
[2022-11-26] MEDS ORDERED: Sodium Chloride 0.9% 10 ML Syringe FLUSH PRN (12:59)
[2022-11-26] MEDS ORDERED: Ondansetron 4 MG/2 ML SDV IV ONE (13:00)
[2022-11-26] MEDS ORDERED: Sodium Chloride 0.9% 1,000 ML IV ONE ×2 (13:00→13:34)
[2022-11-26] MEDS ORDERED: Acetaminophen 500 MG Tab PO ONE (13:01)
[2022-11-26] MEDS ORDERED: Cefepime 2 GM Vial IVPUSH ONE (13:02)
[2022-11-26 13:17] LABS: BASOPHILS PERCENT AUTO 0.2 % (0.0-1.0); EOSINOPHILS PERCENT AUTO 0.1 % (1.0-3.0); HEMATOCRIT 37.1 % (40.0-54.0); HEMOGLOBIN 12.8 g/dL (14.0-18.0); LYMPHOCYTES PERCENT AUTO 4.3 % (20.5-50.1); MEAN CORPUSCULAR HEMOGLOBIN 31.6 pg (27.0-34.0); MEAN CORPUSCULAR HGB CONC 34.5 g/dL (33.0-35.0); MEAN CORPUSCULAR VOLUME 91.6 fL (80-100); MONOCYTES PERCENT AUTO 7.2 % (2-8); NEUTROPHILS PERCENT AUTO 88.2 % (42.2-75.2); PLATELET COUNT,PLT 175 10^3/uL (150-450); RED BLOOD CELL COUNT 4.05 10^6/uL (4.6-6.2); WHITE BLOOD CELL COUNT,WBC 15.4 10^3/uL (5.0-10.0)
[2022-11-26 13:25] VITALS: BP 142/80; PULSE 120
[2022-11-26 13:26] LABS: APPEARANCE,URINE CLEAR (CLEAR); BILIRUBIN,URINE NEGATIVE (NEGATIVE); COLOR,URINE YELLOW (YELLOW); GLUCOSE,URINE NEGATIVE (NEGATIVE); KETONES,URINE NEGATIVE (NEGATIVE); LEUKOCYTE ESTERASE,URINE TRACE (NEGATIVE); NITRITE,URINE NEGATIVE (NEGATIVE); OCCULT BLOOD,URINE SMALL (NEGATIVE); PH,URINE 5.5 (5.0-9.0); PROTEIN,URINE NEGATIVE (NEGATIVE); UROBILINOGEN,URINE 0.2 mg/dL (0.2-1.0)
[2022-11-26 13:32] LABS: PROTHROMBIN TIME 29.5 SEC (9.0-12.0)
[2022-11-26 13:37] LABS: A/G RATIO 1.1; ALANINE AMINOTRANSFERASE,ALT 24 U/L (16-63); ALBUMIN 3.5 g/dL (3.4-5.0); ALKALINE PHOSPHATASE 72 U/L (46-116); AMYLASE 24 U/L (25-115); ANION GAP 13.1 mEq/L (7-13); ASPARTATE AMNIOTRANSFERASE,AST 17 U/L (15-37); BLOOD UREA NITROGEN,BUN 11 mg/dL (7-18); BUN/CREATININE RATIO 11.6 (No establ ref range); CALCIUM 8.2 mg/dL (8.5-10.1); CARBON DIOXIDE,CO2 28 mmol/L (21-32); CHLORIDE,CL 97 mmol/L (98-107); CREATININE 0.95 mg/dL (0.70-1.30); EST CRCL DRUG DOSING (CG) 84.12 mL/min; GLUCOSE RANDOM 189 mg/dL (70-99); LIPASE 49 U/L (73-393); POTASSIUM,K 4.1 mmol/L (3.5-5.1); PROTEIN TOTAL,TP 6.6 g/dL (6.4-8.2); SODIUM,NA 134 mmol/L (136-145)
[2022-11-26 13:39] LABS: EPITHELIAL CELLS,URINE RARE /HPF (NOT SEEN)
[2022-11-26 13:42] LABS: B-TYPE NATRIURETIC PEPTIDE,BNP 148 pg/ml (0-100)
[2022-11-26 13:47] LABS: BACTERIA,URINE RARE /HPF (0-FEW/HPF); RBC,URINE 0-5 /HPF (0-5); WBC,URINE 0-5 /HPF (0-5/HPF)
[2022-11-26 13:50] LABS: ESTIMATED GFR 86 mL/min (>=60)
[2022-11-26 13:52] LABS: KETONES,BLOOD NEGATIVE
[2022-11-26] MEDS ORDERED: Iopamidol 612 MG/ML 100 ML Bottle IVPUSH ONE (13:55)
[2022-11-26] MEDS ORDERED: Diltiazem 25 MG/5 ML SDV IVPUSH ONE (15:19)
== END 2022-11-26 16:37 | disposition home or self-care (01) ==
LOC: DL.ED 12:50
DX: R32 Unspecified urinary incontinence (principal); B34.9 Viral infection, unspecified; I48.91 Unspecified atrial fibrillation; I25.119 Atherosclerotic heart disease of native coronary artery with unspecified angina pectoris; I10 Essential (primary) hypertension; E11.9 Type 2 diabetes mellitus without complications; E66.9 Obesity, unspecified; Z68.41 Body mass index [BMI] 40.0-44.9, adult; Z88.5 Allergy status to narcotic agent; Z88.1 Allergy status to other antibiotic agents; Z79.01 Long term (current) use of anticoagulants; Z79.84 Long term (current) use of oral hypoglycemic drugs; Z79.899 Other long term (current) drug therapy; Z20.822 Contact with and (suspected) exposure to COVID-19
CPT/HCPCS: 36415; 71045; 74177; 80053; 81001; 82009; 82150; 83605; 83690; 83880; 84145; 85025; 85610; 87040; 87086; 87088; 87186; 87804; 93005; 96361; 96374; 96375; 99284; A9270; J0692; J2405; J3490; J7030; Q9967; U0002; 99285

== ENCOUNTER 2024-03-02 05:33 | Day surgery (SDC) | payer MEDICARE, BC ==
[2024-03-02] MEDS ORDERED: Midazolam 1 MG/ML 2 ML SDV IV ONE (05:34)
[2024-03-02] MEDS ORDERED: fentaNYL 100 MCG/2 ML SDV IV ONE (05:34)
[2024-03-02] MEDS: Dextrose 5%-0.45% NaCl 1,000 ML IV SCH (05:54)
[2024-03-02] MEDS ORDERED: fentaNYL 100 MCG/2 ML SDV ONE (06:22)
[2024-03-02] MEDS ORDERED: Midazolam 1 MG/ML 2 ML SDV ONE (06:22)
[2024-03-02] MEDS: fentaNYL 100 MCG/2 ML SDV IV ONE ×2 (06:29→06:30)
[2024-03-02] MEDS: Midazolam 1 MG/ML 2 ML SDV IV ONE ×2 (06:30→06:31)
[2024-03-02 08:01] VITALS: BP 98/60; PULSE 60
== END 2024-03-02 08:22 | disposition home or self-care (01) ==
LOC: DL.ENDO 05:33
PROVIDERS: ATTEND Internal Medicine Gastroenterology
DX: K22.70 Barrett's esophagus without dysplasia (principal); K31.7 Polyp of stomach and duodenum; K29.80 Duodenitis without bleeding; I48.91 Unspecified atrial fibrillation; I10 Essential (primary) hypertension; E11.9 Type 2 diabetes mellitus without complications; E66.9 Obesity, unspecified; G47.33 Obstructive sleep apnea (adult) (pediatric)
CPT/HCPCS: 43239; 87077; 88305; J2250; J3010; J7799

== ENCOUNTER 2024-05-27 09:58 | Day surgery (SDC) | payer MEDICARE, BC ==
[2024-05-27] MEDS ORDERED: Ondansetron 4 MG/2 ML SDV IVPUSH PRN (10:15)
[2024-05-27] MEDS ORDERED: Acetaminophen 325 MG Tab PO PRN (10:15)
[2024-05-27] MEDS ORDERED: Acetaminophen/Codeine 300-30 MG Tab PO PRN (10:15)
[2024-05-27] MEDS: Proparacaine 0.5% Ophth Soln 15 ML Bottle EYELF ONE ×2 (10:33→11:47)
[2024-05-27] MEDS: Povidone-Iodine 5% Sterile Ophth Soln 30 ML Bottle EYELF ONE ×2 (10:57→11:47)
[2024-05-27] MEDS: Moxifloxacin 0.5% Ophth Soln 3 ML Bottle EYELF ONE (10:59)
[2024-05-27] MEDS: Tropicamide 1% Ophth Soln 15 ML Bottle EYELF ONE (11:00)
[2024-05-27] MEDS: Phenylephrine 10% Ophth Soln 5 ML Bot EYELF ONE (11:01)
[2024-05-27] MEDS: Timolol Maleate 0.5% Ophth Soln 5 ML Bottle EYELF ONE (11:02)
[2024-05-27] MEDS: Cataract Ophth Solution EYELF ONE (11:05)
[2024-05-27] MEDS: Sodium Chloride 0.9% 10 ML Syringe FLUSH PRN (11:06)
[2024-05-27] MEDS: Lidocaine 1% 30 ML SDV ONE ×2 (11:56→12:05)
[2024-05-27] MEDS: Chondroitin/Hyaluronate Sodium Ophth Inj 0.5/0.55 ML Kit IOCULAR ONE (12:05)
[2024-05-27] MEDS: Diclofenac Sodium 0.1% Ophth Soln 5 ML Bottle EYELF ONE (12:14)
[2024-05-27] MEDS: Apraclonidine 0.5% Ophth Soln 5 ML Bot EYELF ONE (12:14)
[2024-05-27] MEDS: Dexamethasone/Neomycin/Polymyxin B Ophth Oint 3.5 GM Tube EYELF ONE (12:15)
[2024-05-27 12:42] VITALS: BP 123/66; PULSE 90
== END 2024-05-27 12:55 | disposition home or self-care (01) ==
LOC: DL.SDS 09:58
PROVIDERS: ATTEND Ophthalmology
DX: E11.36 Type 2 diabetes mellitus with diabetic cataract (principal); I10 Essential (primary) hypertension; I48.91 Unspecified atrial fibrillation; E66.9 Obesity, unspecified; Z68.41 Body mass index [BMI] 40.0-44.9, adult; G47.33 Obstructive sleep apnea (adult) (pediatric); Z79.84 Long term (current) use of oral hypoglycemic drugs; Z79.899 Other long term (current) drug therapy
CPT/HCPCS: 66982; A9270; J3490; V2787

== ENCOUNTER 2024-06-03 06:41 | Day surgery (SDC) | payer MEDICARE, BC ==
[~2024-06-03 06:41] MED LIST: Acetaminophen 325 MG Tab PO PRN; Acetaminophen/Codeine 300-30 MG Tab PO PRN; Ondansetron 4 MG/2 ML SDV IVPUSH PRN
[2024-06-03] MEDS: Sodium Chloride 0.9% 10 ML Syringe FLUSH PRN (07:05)
[2024-06-03] MEDS: Proparacaine 0.5% Ophth Soln 15 ML Bottle EYERT ONE ×3 (07:13→08:24)
[2024-06-03] MEDS: Moxifloxacin 0.5% Ophth Soln 3 ML Bottle EYERT ONE (07:14)
[2024-06-03] MEDS: Povidone-Iodine 5% Sterile Ophth Soln 30 ML Bottle EYERT ONE ×3 (07:14→08:24)
[2024-06-03] MEDS: Tropicamide 1% Ophth Soln 15 ML Bottle EYERT ONE (07:15)
[2024-06-03] MEDS: Phenylephrine 10% Ophth Soln 5 ML Bot EYERT ONE (07:16)
[2024-06-03] MEDS: Timolol Maleate 0.5% Ophth Soln 5 ML Bottle EYERT ONE (07:16)
[2024-06-03] MEDS: Cataract Ophth Solution EYERT ONE (07:17)
[2024-06-03] MEDS: Lidocaine 1% 30 ML SDV ONE (08:31)
[2024-06-03] MEDS: Chondroitin Sulfate/Hyaluronate Sodium Ophth Inj 0.5 ML Syringe IOCULAR ONE (08:39)
[2024-06-03] MEDS: Diclofenac Sodium 0.1% Ophth Soln 5 ML Bottle EYERT ONE (08:47)
[2024-06-03] MEDS: Apraclonidine 0.5% Ophth Soln 5 ML Bot EYERT ONE (08:47)
[2024-06-03] MEDS: Dexamethasone/Neomycin/Polymyxin B Ophth Oint 3.5 GM Tube EYERT ONE (08:48)
[2024-06-03 09:18] VITALS: BP 113/77; PULSE 86
== END 2024-06-03 09:40 | disposition home or self-care (01) ==
LOC: DL.SDS 06:41
PROVIDERS: ATTEND Ophthalmology
DX: E11.36 Type 2 diabetes mellitus with diabetic cataract (principal); H26.20 Unspecified complicated cataract; I48.91 Unspecified atrial fibrillation; I10 Essential (primary) hypertension; E66.9 Obesity, unspecified; Z79.01 Long term (current) use of anticoagulants; Z88.8 Allergy status to other drugs, medicaments and biological substances; Z68.41 Body mass index [BMI] 40.0-44.9, adult; Z79.899 Other long term (current) drug therapy
CPT/HCPCS: 66982; A9270; V2787; 00142; 99100; J3490

== ENCOUNTER 2024-06-05 06:29 | Day surgery (SDC) | payer MEDICARE, BC ==
[2024-06-05] MEDS ORDERED: fentaNYL 100 MCG/2 ML SDV IV ONE (06:46)
[2024-06-05] MEDS ORDERED: Midazolam 1 MG/ML 2 ML SDV IV ONE (06:46)
[2024-06-05] MEDS ORDERED: fentaNYL 100 MCG/2 ML SDV ONE (06:46)
[2024-06-05] MEDS ORDERED: Midazolam 1 MG/ML 2 ML SDV ONE (06:46)
[2024-06-05] MEDS: Dextrose 5%-0.45% NaCl 1,000 ML IV SCH (06:48)
[2024-06-05] MEDS: fentaNYL 100 MCG/2 ML SDV IV ONE ×2 (07:51→07:52)
[2024-06-05] MEDS: Midazolam 1 MG/ML 2 ML SDV IV ONE ×4 (07:52→08:01)
[2024-06-05 09:13] VITALS: BP 97/73; PULSE 72
== END 2024-06-05 09:21 | disposition home or self-care (01) ==
LOC: DL.ENDO 06:29
PROVIDERS: ATTEND Internal Medicine Gastroenterology
DX: K57.30 Diverticulosis of large intestine without perforation or abscess without bleeding (principal); K64.8 Other hemorrhoids; I10 Essential (primary) hypertension; E11.9 Type 2 diabetes mellitus without complications; I48.20 Chronic atrial fibrillation, unspecified; G47.30 Sleep apnea, unspecified; Z79.01 Long term (current) use of anticoagulants; Z79.84 Long term (current) use of oral hypoglycemic drugs; Z79.899 Other long term (current) drug therapy
CPT/HCPCS: 88305; J2250; J3010; J7799

== ENCOUNTER 2024-11-01 08:25 | Emergency (ER) | payer BC, MEDICARE ==
[2024-11-01] MEDS ORDERED: Sodium Chloride 0.9% 10 ML Syringe FLUSH PRN (08:39)
[2024-11-01 08:54] LABS: BASOPHILS PERCENT AUTO 0.2 % (0.0-1.0); HEMATOCRIT 41.9 % (40.0-54.0); HEMOGLOBIN 14.2 g/dL (14.0-18.0); LYMPHOCYTES PERCENT AUTO 7.5 % (20.5-50.1); MEAN CORPUSCULAR HEMOGLOBIN 30.5 pg (27.0-34.0); MEAN CORPUSCULAR HGB CONC 33.9 g/dL (33.0-35.0); MEAN CORPUSCULAR VOLUME 89.9 fL (80-100); MONOCYTES PERCENT AUTO 13.1 % (2-8); NEUTROPHILS PERCENT AUTO 79.2 % (42.2-75.2); PLATELET COUNT,PLT 164 10^3/uL (150-450); RED BLOOD CELL COUNT 4.66 10^6/uL (4.6-6.2); WHITE BLOOD CELL COUNT,WBC 8.6 10^3/uL (5.0-10.0)
[2024-11-01 09:15] LABS: INR 1.5 (0.9-1.2); PROTHROMBIN TIME 14.9 SEC (9.0-12.0)
[2024-11-01 09:19] LABS: A/G RATIO 0.9; ALBUMIN 3.4 g/dL (3.4-5.0); ANION GAP 14.7 mEq/L (7-13); BILIRUBIN TOTAL 1.6 mg/dL (0.2-1.0); BUN/CREATININE RATIO 14.7 (No establ ref range); CALCIUM 8.3 mg/dL (8.5-10.1); CREATININE 1.09 mg/dL (0.70-1.30); EST CRCL DRUG DOSING (CG) 71.22 mL/min; MAGNESIUM 1.8 mg/dL (1.8-2.4); POTASSIUM,K 3.7 mmol/L (3.5-5.1); PROTEIN TOTAL,TP 7.2 g/dL (6.4-8.2)
[2024-11-01 09:36] LABS: APPEARANCE,URINE CLEAR (CLEAR); BILIRUBIN,URINE NEGATIVE (NEGATIVE); COLOR,URINE YELLOW (YELLOW); GLUCOSE,URINE 500 (NEGATIVE); KETONES,URINE >=160 (NEGATIVE); LEUKOCYTE ESTERASE,URINE NEGATIVE (NEGATIVE); NITRITE,URINE POSITIVE (NEGATIVE); OCCULT BLOOD,URINE MODERATE (NEGATIVE); PH,URINE 5.5 (5.0-9.0); PROTEIN,URINE 30 (NEGATIVE); UROBILINOGEN,URINE 0.2 mg/dL (0.2-1.0)
[2024-11-01] MEDS: Sodium Chloride 0.9% 1,000 ML IV SCH (09:39)
[2024-11-01 09:44] LABS: BACTERIA,URINE MODERATE /HPF (0-FEW/HPF)
[2024-11-01 09:45] LABS: EPITHELIAL CELLS,URINE RARE /HPF (NOT SEEN); WBC,URINE 0-5 /HPF (0-5/HPF)
[2024-11-01] MEDS: Iopamidol 612 MG/ML 100 ML Bottle IVPUSH ONE (10:14)
[2024-11-01] MEDS: Levofloxacin/Dextrose 5%-Water 750 MG in Premix Bag 1 BAG IV ONE (10:54)
[2024-11-01 12:34] VITALS: BP 142/83; PULSE 84
== END 2024-11-01 12:34 | disposition home or self-care (01) ==
LOC: DL.ED 08:25
DX: N39.0 Urinary tract infection, site not specified (principal); E87.1 Hypo-osmolality and hyponatremia; I10 Essential (primary) hypertension; E66.9 Obesity, unspecified; Z88.8 Allergy status to other drugs, medicaments and biological substances; Z79.899 Other long term (current) drug therapy; Z79.84 Long term (current) use of oral hypoglycemic drugs
CPT/HCPCS: 36415; 51798; 70450; 74178; 80053; 81001; 83036; 83735; 83880; 85025; 85610; 87086; 87088; 87186; 87426; 96361; 96365; 99284; J1956; J7030; Q9967